=== PATIENT | female | born 1965 | race Caucasian/White ===

== ENCOUNTER → 2017-06-27 | Day surgery (SDC) | payer OTHER ==
[~2017-06-27] VITALS: Ht 165.1 cm; Wt 131.5 kg
[~2017-06-27] MED LIST: /CELE20CA; ADV250INH INH; ALBU83IN; ALBUTEROL SULFATE 2.5 MG/0.5 ML INH NEB SOLN As Ordered ONE; ALBUTEROL SULFATE 2.5 MG/0.5 ML INH NEB SOLN INH ONE; AMOX875T; ASPI81TA3; BENZ100C5 PO; BUPR1TAB53 PO; CARI350T; COLA100C2; COMBAER6 INH; DULO30CA PO; FURO20TA2 PO; GABA-283 PO; GLIP2.5T6 PO; HYDR-3713 PO; KETOROLAC 60 MG/2 ML VIAL (J1885) As Ordered ONE; LEVA500T; LEVO150T7 PO; LIDOCAINE 2% INJ 100 MG/5 ML SDV (FOR ANES.) As Ordered ONE; LOPR50TA; LR 1,000 ML IV ONE; LR 1,000 ML IV SCH; METF10004 PO; MIDAZOLAM INJ 2 MG/2 ML VIAL (J2250) As Ordered ONE; NICO4GUM PO; NORCO, ANEXSIA 5/325MG TABLET (HYDROcodone/ACETAMINOPHEN) PO PRN; OMEP40CA2 PO; ONDANSETRON 4MG/2ML VIAL (J2405) As Ordered ONE; ONDANSETRON 4MG/2ML VIAL (J2405) IV PRN; PAXI20TA; PERC5TAB8; PRED10PA2 PO; PROPOFOL 200 MG/20 ML VIAL As Ordered ONE; RANI150C; ROCURONIUM BROMIDE 50 MG/5 ML VIAL/SYRINGE As Ordered ONE; ROPIvacaine 0.5% 30 ML INJECTION (J2795) As Ordered ONE; SIMV40TA2 PO; SUGAMMADEX SODIUM 500 MG/5 ML VIAL (BRIDION) As Ordered ONE; SYNT75TA; TIZA4CAP3 PO; TOPR25TA PO; TRAZ50TA11 PO; VARE1TA; VICO5TAB; ZOFR20TA PO; dexameTHASONE 4 MG/ML 1ML VIAL (J1100) As Ordered ONE; fentaNYL 100 MCG/2 ML INJECTION (J3010) As Ordered ONE
[2017-06-27] MEDS: fentaNYL 100 MCG/2 ML INJECTION (J3010) IV PRN ×4 (13:13→13:38)
[2017-06-27] MEDS: HYDROmorphone HCL 1 MG/ML SYRINGE (J1170) IV PRN ×4 (13:38→13:56)
[2017-06-27 15:00] VITALS: BP 111/72
--- NOTE | 2017-06-28 11:02 | RO ---
DATE OF PROCEDURE: 06/27/2017 PREOPERATIVE DIAGNOSES: Right knee osteoarthritis and medial meniscus tear. POSTOPERATIVE DIAGNOSIS: Right knee osteoarthritis and medial meniscus tear with lateral meniscus tear. PROCEDURE: Right knee operative arthroscopy, partial medial and lateral meniscectomy, joint debridement. SURGEON: Dr. Eric Ambriz ANESTHESIA: General. ESTIMATED BLOOD LOSS: Minimal. COMPLICATIONS: None. INDICATIONS: This is a 51-year-old woman who has had gradually worsening right knee pain. She had MRI scan that was consistent with meniscus tearing and osteoarthritis. She very much wished for surgical treatment, as this was severely limiting her ability to do regular activities. She is morbidly obese. She understood the nature of this, the risks of bleeding, infection, damage to nerves, vessels, persistent pain, blood clots, medical problems, among others. DESCRIPTION OF PROCEDURE: The patient taken to the operating room and placed in supine position. After general anesthesia was induced, the right lower extremity was prepped and draped in the usual sterile fashion. The tourniquet was placed and inflated. Time-out was performed. I then created an inferomedial, inferolateral portals per routine. Identified the patellofemoral joint, which had grade 3 to 4 changes throughout areas of this, and I smoothed off any loose flaps. I proceeded down both gutters and identified the medial compartment. She had a complex large medial meniscus tear that was resected with combination of basket punch and a 4.2 shaver back to a stable rim. The anterior cruciate ligament (ACL) was unremarkable. Lateral compartment was identified. She had a posterior horn lateral meniscus attachment tear that was debrided back with the shaver and some loose flaps on the lateral femoral condyle and lateral tibial plateau that were debrided. I then reexamined the entire joint, refilled the menisci, irrigated copiously, removed the instrumentation and closed the portals with #4-0 nylon suture and injected 30 mL of Naropin. Sterile dressing was applied. Tourniquet was deflated. She was taken to recovery room in stable condition. There were no known complications.
== END | disposition home or self-care (01) ==
LOC: M SDC 10:21
PROVIDERS: ATTEND Orthopaedic Surgery
DX: M17.11 Unilateral primary osteoarthritis, right knee (principal); M23.251 Derangement of posterior horn of lateral meniscus due to old tear or injury, right knee; M23.203 Derangement of unspecified medial meniscus due to old tear or injury, right knee; E66.01 Morbid (severe) obesity due to excess calories; J45.909 Unspecified asthma, uncomplicated; I10 Essential (primary) hypertension; J44.9 Chronic obstructive pulmonary disease, unspecified; E03.9 Hypothyroidism, unspecified; G47.30 Sleep apnea, unspecified; E78.00 Pure hypercholesterolemia, unspecified; K57.92 Diverticulitis of intestine, part unspecified, without perforation or abscess without bleeding; M54.5 Low back pain; F32.9 Major depressive disorder, single episode, unspecified; F41.9 Anxiety disorder, unspecified; E11.40 Type 2 diabetes mellitus with diabetic neuropathy, unspecified; K21.9 Gastro-esophageal reflux disease without esophagitis; Z88.5 Allergy status to narcotic agent; F17.210 Nicotine dependence, cigarettes, uncomplicated; Z79.899 Other long term (current) drug therapy; Z79.84 Long term (current) use of oral hypoglycemic drugs; Z79.51 Long term (current) use of inhaled steroids

== ENCOUNTER 2018-04-24 12:23 | Emergency (ER) | payer OTHER ==
[2018-04-24] MEDS: CLINDAMYCIN 150 MG CAP PO (13:45)
[2018-04-24] MEDS: NORCO, ANEXSIA 5/325MG TABLET (HYDROcodone/ACETAMINOPHEN) PO (13:45)
[2018-04-24] MEDS: predniSONE 20 MG TAB PO (13:45)
[2018-04-24] MEDS: diphenhydrAMINE 50 MG CAP PO (13:45)
== END 2018-04-24 14:20 | disposition home or self-care (01) ==
LOC: M ED 12:23
DX: L03.211 Cellulitis of face (principal); S00.86XA Insect bite (nonvenomous) of other part of head, initial encounter; W57.XXXA Bitten or stung by nonvenomous insect and other nonvenomous arthropods, initial encounter; Y92.89 Other specified places as the place of occurrence of the external cause; E11.9 Type 2 diabetes mellitus without complications; I10 Essential (primary) hypertension; E78.5 Hyperlipidemia, unspecified; J44.9 Chronic obstructive pulmonary disease, unspecified; J45.909 Unspecified asthma, uncomplicated; G43.909 Migraine, unspecified, not intractable, without status migrainosus; K21.9 Gastro-esophageal reflux disease without esophagitis; E03.9 Hypothyroidism, unspecified; M54.9 Dorsalgia, unspecified; F41.9 Anxiety disorder, unspecified; F32.9 Major depressive disorder, single episode, unspecified; K57.92 Diverticulitis of intestine, part unspecified, without perforation or abscess without bleeding; Z88.5 Allergy status to narcotic agent; F17.210 Nicotine dependence, cigarettes, uncomplicated; Z79.899 Other long term (current) drug therapy; Z79.84 Long term (current) use of oral hypoglycemic drugs; Z79.51 Long term (current) use of inhaled steroids
CPT/HCPCS: 99283

== ENCOUNTER → 2019-04-18 | Outpatient (REF) ==
[~2019-04-18] MED LIST changes: -/CELE20CA; -ALBUTEROL SULFATE 2.5 MG/0.5 ML INH NEB SOLN As Ordered ONE; -ALBUTEROL SULFATE 2.5 MG/0.5 ML INH NEB SOLN INH ONE; +BENZ-18 PO; -BENZ100C5 PO; +CELE1CAP4; +CLEO300C2 PO; -DULO30CA PO; +DULO30CA9 PO; -GABA-283 PO; +GABA-845 PO; -KETOROLAC 60 MG/2 ML VIAL (J1885) As Ordered ONE; -LIDOCAINE 2% INJ 100 MG/5 ML SDV (FOR ANES.) As Ordered ONE; +LORA-243; -LR 1,000 ML IV ONE; -LR 1,000 ML IV SCH; -MIDAZOLAM INJ 2 MG/2 ML VIAL (J2250) As Ordered ONE; -NORCO, ANEXSIA 5/325MG TABLET (HYDROcodone/ACETAMINOPHEN) PO PRN; -ONDANSETRON 4MG/2ML VIAL (J2405) As Ordered ONE; -ONDANSETRON 4MG/2ML VIAL (J2405) IV PRN; +PRED20TA PO; -PROPOFOL 200 MG/20 ML VIAL As Ordered ONE; -ROCURONIUM BROMIDE 50 MG/5 ML VIAL/SYRINGE As Ordered ONE; -ROPIvacaine 0.5% 30 ML INJECTION (J2795) As Ordered ONE; -SUGAMMADEX SODIUM 500 MG/5 ML VIAL (BRIDION) As Ordered ONE; +TIZA4CAP PO; -TIZA4CAP3 PO; +TRAZ-160 PO; -TRAZ50TA11 PO; -ZOFR20TA PO; +ZOFR4TAB16 PO; -dexameTHASONE 4 MG/ML 1ML VIAL (J1100) As Ordered ONE; -fentaNYL 100 MCG/2 ML INJECTION (J3010) As Ordered ONE
--- NOTE | 2019-04-18 14:01 | REP ---
Clinical: Nontraumatic hip pain. Technique: AP and frog lateral views of the right hip. Findings: Osseous structures and joint spaces are intact and normal. Very minimal age-related degenerative change include subtle sclerosis and spurring along the acetabular roof. Joint space appears within normal limits. No acute fracture or dislocation. Impression: Essentially age-appropriate examination. Very minimal age-related changes are suggested. Electronically Signed by Obie Robin MD 04/18/2019 01:52 P
--- NOTE | 2019-04-18 14:15 | REP ---
PARTIAL LUMBAR SPINE, THREE VIEWS: HISTORY: Degenerative disc disease. COMPARISON: 08/27/2015. There is no acute fracture or subluxation. The L2-3 through L5-S1 intervertebral discs are decreased in height consistent with disc degeneration. Osteophytes are present on T12, L1, and L4. A left laminectomy defect is present at the L5 level. IMPRESSION: Degenerative change as described above. Electronically Signed by Yoni Rivas MD 04/18/2019 02:23 P
== END ==
LOC: M SMT 11:02
PROVIDERS: ATTEND Internal Medicine
DX: M25.551 Pain in right hip (principal); M51.36 Other intervertebral disc degeneration, lumbar region; M51.37 Other intervertebral disc degeneration, lumbosacral region; M25.78 Osteophyte, vertebrae

== ENCOUNTER → 2019-10-22 | Outpatient (REF) ==
[~2019-10-22] MED LIST changes: -OMEP40CA2 PO; +OMEP40CA97 PO; -TRAZ-160 PO; +TRAZ-252 PO
== END ==
LOC: M LAB LCGH 15:31
PROVIDERS: ATTEND Surgery
DX: Z12.11 Encounter for screening for malignant neoplasm of colon (principal); K63.5 Polyp of colon; D12.3 Benign neoplasm of transverse colon; D12.2 Benign neoplasm of ascending colon